=== PATIENT | female | born 1950 | race Caucasian/White ===

== ENCOUNTER 2018-10-12 14:24 | Day surgery (SDC) | payer MEDICARE, OTHER ==
[2018-10-12] VITALS (12 sets, daily range): BP systolic 125–154; BP diastolic 60–76; PULSE 64–72; RESP 15–23; Ht 160 cm; Wt 65.7 kg
[~2018-10-12] VITALS: Ht 160 cm; Wt 65.7 kg
[~2018-10-12 14:24] MED LIST: AMLO-218 PO; LANT3I SC; SOD CHLORIDE 0.9% 500 ML IV ONE
[2018-10-12] MEDS ORDERED: INDOMETHACIN 50 MG SUPP PR ONE (18:00)
[2018-10-12] MEDS ORDERED: IOHEXOL 300MG/ML 30 ML BTL ONE (18:11)
--- NOTE | 2018-10-12 18:18 | PREAC ---
Date/Time of Note Date/Time of Note DATE: 10/12/18 TIME: 18:17 Anesthesia Eval and Record Evaluation Time Pre-Procedure Interview DATE: 10/12/18 TIME: 18:17 Age 68 Sex female NPO: 8 hrs Preoperative diagnosis pancreatic mass Planned procedure ERCP Past Medical History Past Medical History: Includes Cardio: HTN Endo: Diabetes Renal: ESRD on dialysis, HD last: (10/11/18) Surgery & Anesthesia Issues No known issue Meds Anticoagulation: No Beta Madie within 24 hr: Yes Reason Beta Madie not given: Bradycarida, Hypotension Active Scripts Insulin Glargine* (Lantus*) 100 Unit/Ml Soln, 15 UNIT SC QAM, #1 VIAL 1 Refill Prov:GLADYSDREW 08/12/15 Amlodipine Besylate* (Norvasc*) 10 Mg Tab, 10 MG PO DAILY, #60 TAB 1 Refill Prov:DREW GRAHAM 08/12/15 Meds reviewed: Yes Allergies Coded Allergies: No Known Allergy (Unverified , 08/09/15) Allergies Reviewed: Yes Labs/Studies Labs Reviewed: Reviewed by anesthesiologist Result Diagram: 10/12/18 1521 Laboratory Tests 10/12/18 15:21 test: N/A Pre-procedure Exam Last vitals Vital Signs Date Temp Pulse Resp B/P (MAP) Pulse Ox O2 O2 Flow FiO2 Time Delivery Rate 10/12/18 97.9 71 18 125/76 95 17:48 (92) 10/12/18 Room Air 16:06 Airway: Adequate mouth opening, Adequate thyromental dist Mallampati: Mallampati II Teeth: Normal Lung: Normal Heart: Normal ASA Physical Status ASA physical status: 3 Emergency: None Planned Anesthetic General/MAC: ETT Planned Pain Management Parenteral pain med Pre-operative Attestations Prior to commencing anesthesia and surgery, the patient was re-evaluated, there was verification of: *The patient's identity *The results of appropriate recent lab work and preoperative vital signs *The above evaluation not changing prior to induction *Anesthetic plan, risk benefits, alternative and complications discussed with patient/family; questions answered; patient/family understands, accepts and wishes to proceed. Principal Research Economist used REMIGIO LOWE MD Oct 12, 2018 18:18
[2018-10-12] MEDS ORDERED: HYDROmorphONE 1 MG/5 ML IV SYRINGE IV PRN (18:30)
[2018-10-12] MEDS ORDERED: ONDANSETRON 4 MG INJ IV PRN (18:30)
[2018-10-12] MEDS ORDERED: MEPERIDINE 25 MG INJ IV PRN (18:30)
[2018-10-12] MEDS ORDERED: DIPHENHYDRAMINE 50 MG INJ IV PRN (18:30)
[2018-10-12] MEDS ORDERED: GLUCAGON 1 MG INJ ONE (18:37)
[2018-10-12] MEDS ORDERED: PROPOFOL 20 ML ONE (18:41)
[2018-10-12] MEDS ORDERED: LIDOCAINE 2% (SDV) 5 ML INJ ONE (18:41)
[2018-10-12] MEDS ORDERED: FAMOTIDINE 20 MG INJ ONE (18:43)
[2018-10-12] MEDS ORDERED: ONDANSETRON 4 MG INJ ONE (18:43)
--- NOTE | 2018-10-12 19:14 | PAC ---
Date/Time of Note Date/Time of Note DATE: 10/12/18 TIME: 19:14 Post-Anesthesia Notes Post-Anesthesia Note Last documented vital signs Vital Signs Date Temp Pulse Resp B/P (MAP) Pulse Ox O2 O2 Flow FiO2 Time Delivery Rate 10/12/18 97.9 71 18 125/76 95 17:48 (92) 10/12/18 Room Air 16:06 Activity: WNL Respiratory function: WNL Cardiovascular function: WNL Mental status: Baseline Pain reasonably controlled: Yes Hydration appropriate: Yes Nausea/Vomiting absent: Yes Comments BP: 127/62 HR: 70 RR: 15 T: 98 SaO2: 95% room air REMIGIO LOWE MD Oct 12, 2018 19:14
--- NOTE | 2018-10-12 19:21 | OPPN ---
Date/Time of Note Date/Time of Note DATE: 10/12/18 TIME: 19:16 Proc Note GI Procedure Date 10/12/18 Indication: diagnostic, treatment Pre-procedure Diagnosis Biliary obstruction Post-procedure Diagnosis Impression: Biliary obstruction rule out pancreatic neoplasm versus others Significant dilatation of the biliary tree. Ampullary area appears slightly deformed and irregular with less pliability than normally observed Rule out neoplasm Post sphincterotomy. Post sludge removal Post placement of Moldovan 10-7 cm stent Plan: Observation, Follow-up as outpatient EUS as an outpatient discrepancies between MRCP suggesting pancreatic mass and CT with pancreatic protocol showing no abnormalities Procedure Performed: ERCP (Plus sphincterotomy plus stent placement) Surgeon GLADIS ARMANDO MD See signature line Res Counselor none Anesthesia Type: general Anesthesiologist: REMIGIO LOWE MD Tourniquet Time none EBL none Transfusion required none Biopsy 1: None Grafts/Implants Moldovan 10-7 cm plastic biliary stent Tubes/Drains none Complication(s) none Disposition: PACU, home Procedure Description After informed consent, with the patient/relatives understanding the procedure, its indications, potential risks and complications, including but not limited to: allergic reaction, bleeding, perforation or infection, and after all pertinent questions were answered to the patients satisfaction, the patient/relatives signed witnessed informed consent. Following this, premedication was administered slowly IV push under careful cardiovascular and respiratory monitoring with pulse oximetry, automatic blood pressure, and nuclear monitoring technician. Once the sedative effect was achieved the patient was place in the prone position in the radiology special procedures suite; the side viewing panendoscope was introduced and advanced under visual control. Careful examination of the upper gastrointestinal tract, both on insertion as well as withdrawal of the instrument disclosed the following findings: Esophagus: The mucosa of the entire appears within normal limits. There is no evidence of esophagitis, varices, neoplasm or stricture. No Hiatal Hernia identified. Stomach: Upon entrance to the stomach air was insufflated, the gastric stone distended normally, the mucosa of the fundus, body and antrum of the stomach was carefully examined both head-on and on retroflexion, and shows no abnormalities. There is no evidence of gastritis, ulcers, or neoplasm. Pylorus: The pylorus appears patent and within normal limits, with no evidence of gastric outlet obstruction. Duodenum: The duodenal mucosa was carefully examined in the duodenal bulb as well as the second portion of the duodenum and appears unremarkable with no evidence of duodenitis, ulcer or neoplasm. Ampulla of vater: The ampulla of Vater was identified and carefully examined appearing within normal limits. Cannulation: At this point cannulation was accomplished with the following fluoroscopic findings: Pancreatogram: Not obtained Cholangiogram: There is significant dilatation of the biliary tree to approximately 18 mm in maximum diameter. The ampullary area appears somewhat irregular. The ampulla itself appears unremarkable. Sphincterotomy was performed without difficulty the tissue did appear to be somewhat less pliable than normal. A balloon sweep with a 15-18 mm balloon Resulted in large amounts of bile and some sludge removal. Following this a Moldovan 10-7 cm stent was inserted without difficulty and excellent drainage. The instrument was then withdrawn the patient tolerated the procedure well and was transfer out of the endoscopy suite awake, and in good condition to continue to recover under observation. GLADIS ARMANDO MD Oct 12, 2018 19:21
== END 2018-10-12 19:54 | disposition home or self-care (01) ==
LOC: SDS 14:24 → GIL 14:24 → SDS 19:54
PROVIDERS: ATTEND Internal Medicine Gastroenterology
DX: K83.1 Obstruction of bile duct (principal); I12.0 Hypertensive chronic kidney disease with stage 5 chronic kidney disease or end stage renal disease; N18.6 End stage renal disease; Z99.2 Dependence on renal dialysis; E11.9 Type 2 diabetes mellitus without complications; Z79.4 Long term (current) use of insulin
CPT/HCPCS: 43262; 43274; 74330; 82962; 84132; C2617; J1610; J2405; Q9967